=== PATIENT | male | born 1975 | race Hispanic/Latino ===

== ENCOUNTER 2018-05-02 19:15 | Emergency (ER) | payer OTHER ==
[2018-05-02] MEDS ORDERED: Amoxicillin/Potassium Clav 875 MG TAB ONE (19:33)
== END 2018-05-02 19:42 | disposition home or self-care (01) ==
LOC: BURERS 19:15
DX: L25.9 Unspecified contact dermatitis, unspecified cause (principal); L03.119 Cellulitis of unspecified part of limb; M79.81 Nontraumatic hematoma of soft tissue; F17.210 Nicotine dependence, cigarettes, uncomplicated; I10 Essential (primary) hypertension; Z79.891 Long term (current) use of opiate analgesic; Z79.899 Other long term (current) drug therapy
CPT/HCPCS: 99283